=== PATIENT | female | born 1970 | race African-American/Black ===

== ENCOUNTER 2016-10-23 21:12 | Emergency (ER) | payer BC ==
--- NOTE | ~2016-10-23 | CR72 ---
[facility] A Service of [facility] & [facility] RADIOLOGY TEXT RESULTS PATIENT: WILLIE NESS LOCATION: [facility] : 72 UNIT #: [id number] AGE: [address]: Raj Davis MD SEX: F ORDER DR: [id number] [facility] [address] [place], [place] [address] [id number] MR#: [id number] Acc #: [id number] NAME: WILLIE NESS : 1970 SEX: F STUDY DATE/TIME: 10/23/2016 20:04 UNIT: [facility] ROOM: STUDY DESCRIPTION: CR Chest Single View Portable Attending Physician: Gerardo Davis M.D. Referring Physician: [facility] Ordering Physician: Adam Godoy M.D. Primary Care Physician: [facility] MEDICAL IMAGING REPORT This report is preliminary unless electronic signature is present EXAM Portable chest HISTORY Chest pain for 4 days. Shortness of air. FINDINGS A single AP portable view of the chest shows both lungs to be clear. The heart is normal in size. The mediastinal contour is normal. No significant bone abnormalities are seen. IMPRESSION Normal portable chest. Dictated by... David Mcleod M.D. THIS IS AN ELECTRONICALLY VERIFIED REPORT David Mcleod M.D. at 10/24/2016 2:20 PM DFL/psc TD: 10/24/2016 04:34 JOB #: [id number] MEDICAL IMAGING REPORT COPY
--- NOTE | ~2016-10-23 | EKG ---
PATIENT: WILLIE NESS UNIT #: [id number] Ventricular Rate: 86 BPM Atrial Rate: 86 BPM P-R Interval: 140 ms QRS Duration: 74 ms Q-T Interval: 362 ms QTC Calculation(Bezet): 433 ms P [place]: 82 degrees Calculated R [place]: 81 degrees Calculated T [place]: 61 degrees Diagnosis Line: Normal sinus rhythm Diagnosis Line: Right atrial enlargement Diagnosis Line: T wave abnormality, consider inferior ischemia Diagnosis Line: T wave abnormality, consider anterior ischemia Diagnosis Line: Abnormal ECG Diagnosis Line: When compared with ECG of 01-MAR-2015 02:04, Diagnosis Line: T wave inversion now evident in Inferior leads Diagnosis Line: Inverted T waves have replaced nonspecific T wave Diagnosis Line: abnormality in Anterior leads Diagnosis Line: Confirmed by SOPHIE EDMONDSON MD ([id number]) on 10/24/2016 Diagnosis Line: 5:42:50 PM INTERPRETING MD: DELVIS HERNANDEZ
--- NOTE | ~2016-10-23 | EKG ---
PATIENT: WILLIE NESS UNIT #: [id number] Ventricular Rate: 86 BPM Atrial Rate: 86 BPM P-R Interval: 140 ms QRS Duration: 74 ms Q-T Interval: 362 ms QTC Calculation(Bezet): 433 ms P [place]: 82 degrees Calculated R [place]: 81 degrees Calculated T [place]: 61 degrees Diagnosis Line: Normal sinus rhythm Diagnosis Line: Right atrial enlargement Diagnosis Line: T wave abnormality, consider inferior ischemia Diagnosis Line: T wave abnormality, consider anterior ischemia Diagnosis Line: Abnormal ECG Diagnosis Line: When compared with ECG of 01-MAR-2015 02:04, Diagnosis Line: T wave inversion now evident in Inferior leads Diagnosis Line: Inverted T waves have replaced nonspecific T wave Diagnosis Line: abnormality in Anterior leads Diagnosis Line: Confirmed by SOPHIE EDMONDSON MD ([id number]) on 10/24/2016 Diagnosis Line: 5:42:50 PM Diagnosis Line: Also confirmed by SOPHIE EDMONDSON MD ([id number]), associate editor Diagnosis Line: MERY GOMEZ ([id number]) on 10/25/2016 8:42:11 AM INTERPRETING MD: DELVIS HERNANDEZ
[2016-10-23 20:29] LABS: BASOPHIL% 0.4 % (0-2.5); EOSINOPHIL# 0.1 X10e3 (0-0.7); EOSINOPHIL% 1.7 % (0.0-7.0); HEMATOCRIT 39.5 % (35.0-45.0); HEMOGLOBIN 12.7 gm/dL (12.0-16.0); LYMPHOCYTE# 2.9 X10e3 (1.0-3.5); LYMPHOCYTE% 43.6 % (17.0-45.0); MEAN CELL VOLUME 83.1 FL (83-96); MEAN CORPUSCULAR HEMOGLOBIN 26.8 PG (28-34); MEAN CORPUSCULAR HGB CONC 32.2 g/dL (30-36); MEAN PLATELET VOLUME 8.3 FL (6.5-11.5); MONOCYTE# 0.7 X10e3 (0-1.0); MONOCYTE% 10.8 % (3.0-12.0); NEUTROPHIL# 2.9 X10e3 (1.5-7.1); NEUTROPHIL% 43.5 % (40-75); PLATELET COUNT 181 X10e3 (140-420); RED BLOOD COUNT 4.76 X10e (3.90-5.30); RED CELL DISTRIBUTION WIDTH 12.9 % (11.0-15.5); WHITE BLOOD COUNT 6.6 X10e3 (4.0-10.5)
[2016-10-23 20:31] LABS: POC - CKMB <1.0 ng/mL (0.0-7.9); POC - TROPONIN <0.05 ng/mL (<=0.05)
[2016-10-23 20:33] LABS: DIFF IND NO
[2016-10-23 20:41] LABS: PARTIAL THROMBOPLASTIN TIME 29.2 SECONDS (23.5-31.3)
[2016-10-23 20:53] LABS: ALBUMIN SERUM 2.8 g/dL (3.5-5.0); ALKALINE PHOSPHATASE 58 U/L (32-92); ALT (SGPT) 14 U/L (10-40); AST (SGOT) 24 U/L (10-42); BILIRUBIN, DIRECT 0.1 mg/dL (0.0-0.2); BILIRUBIN,INDIRECT 0.4 mg/dL (0.0-0.9); BILIRUBIN,TOTAL 0.5 mg/dL (0.2-2.0); BLOOD UREA NITROGEN 8 mg/dL (9-23); BUN/CREATININE RATIO 13.33; CALCIUM SERUM 7.9 mg/dL (8.4-10.2); CARBON DIOXIDE 26 mmol/L (22-31); CHLORIDE 104 mmol/L (100-111); CREATININE SERUM 0.6 mg/dL (0.6-1.4); GLOM FILT RATE Estimated ABOVE60 mL/min (>60); GLUCOSE FASTING 87 mg/dL (70-110); POTASSIUM 3.5 mmol/L (3.5-5.1); PROTEIN TOTAL SERUM 5.9 g/dL (6.0-8.3); SODIUM 135 mmol/L (135-145)
[~2016-10-23 21:12] MED LIST: FLEXERIL10 MG PO; MEDROL DOSEPAK4 MG PO; ZITHROMAX PO
[2016-10-23 22:03] LABS: POC - CKMB <1.0 ng/mL (0.0-7.9); POC - TROPONIN <0.05 ng/mL (<=0.05)
== END 2016-10-24 00:55 | disposition home or self-care (01) ==
LOC: CED 21:12
PROVIDERS: Emergency Medicine
DX: J20.9 Acute bronchitis, unspecified (principal); F17.210 Nicotine dependence, cigarettes, uncomplicated; Z88.0 Allergy status to penicillin
CPT/HCPCS: 36415; 71010; 80048; 80076; 82553; 84484; 85025; 85610; 85730; 93005; 94640; 96361; 96374; 99284; J1720; J2930